=== PATIENT | male | born 1980 | race African-American/Black ===

== ENCOUNTER 2024-01-14 13:08 | Emergency (ER) | payer OTHER ==
[2024-01-14] MEDS ORDERED: Acetaminophen 500 MG TAB ONE (14:09)
== END 2024-01-14 14:25 | disposition home or self-care (01) ==
LOC: ERS 13:08
DX: S39.012A Strain of muscle, fascia and tendon of lower back, initial encounter (principal); I10 Essential (primary) hypertension; E11.9 Type 2 diabetes mellitus without complications; F17.200 Nicotine dependence, unspecified, uncomplicated; E78.5 Hyperlipidemia, unspecified; V43.52XA Car driver injured in collision with other type car in traffic accident, initial encounter; Z79.84 Long term (current) use of oral hypoglycemic drugs; Z79.899 Other long term (current) drug therapy
CPT/HCPCS: 72100; 99283

== ENCOUNTER 2025-04-20 08:52 | Outpatient (CLI) | payer BC | END 2025-04-20 08:53 | disposition home or self-care (01) | LOC: BICMRI 08:52 | PROVIDERS: ATTEND Family Medicine | DX: M51.16 Intervertebral disc disorders with radiculopathy, lumbar region (principal) | CPT/HCPCS: 72148 ==